=== PATIENT | female | born 1960 | race American Indian/Alaskan Native ===

== ENCOUNTER 2018-08-23 08:29 | Outpatient (CLI) | payer OTHER ==
--- NOTE | 2018-08-23 09:55 | XRay Report ---
XRAY LEFT ANKLE 2 VIEWS: 08/23/18 08:29:00 CLINICAL: Diabetes and rheumatoid arthritis. Disability exam. FINDINGS: The ankle mortise is intact. No fracture or dislocation. Moderate tibiotalar osteoarthritis with osteophytes. No erosions. Minimal enthesophytes. Nonspecific focal pronounced soft tissue swelling at the lateral malleolus. A few benign soft tissue calcifications. Nonspecific soft tissue edema about the hindfoot. IMPRESSION: Tibiotalar osteoarthritis and nonspecific soft tissue edema. No erosive arthritis.
--- NOTE | 2018-08-23 14:06 | XRay Report ---
LUMBOSACRAL SPINE, 3 VIEWS: History: Disability exam, hypertension, rheumatoid arthritis feet, diabetes Findings: There is mild levocurvature of the lumbar spine with moderate multilevel degenerative disc disease and facet arthropathy. There is no evidence for fracture, subluxation or bone lesion. The sacrum and SI joints are unremarkable. Impression: Levoscoliosis of the lumbar spine with degenerative changes.
== END 2018-08-23 08:30 | disposition home or self-care (01) ==
LOC: XRAY 08:29
PROVIDERS: ATTEND Internal Medicine
DX: Z02.71 Encounter for disability determination (principal); M41.86 Other forms of scoliosis, lumbar region; M51.36 Other intervertebral disc degeneration, lumbar region; M19.072 Primary osteoarthritis, left ankle and foot; R60.0 Localized edema; Z91.018 Allergy to other foods
CPT/HCPCS: 72100